=== PATIENT | female | born 1970 | race Caucasian/White ===

== ENCOUNTER → 2016-04-01 | Outpatient (CLI) | payer MEDICARE, MEDICAID ==
[~2016-04-01] MED LIST: /RISPSOL3 PO; /ROPI1TA OR; ABIL30TA4 OR; ALLE25CA OR; ARTHROTEC OR; BACL10TA2 OR; CELE100C OR; CLON1TAB PO; DOCU10CA PO; DRIS50002 PO; GABA800T PO; HYDR-3713 PO; HYDR50TA8 OR; LAMO25TA2 PO; MIRT30TA3 PO; OXCA600T OR; PERC5TAB6 PO; PERC5TAB8 OR; PRAZ2CAP PO; PREG50CA OR; PROP10TA56 PO; QUET30TA OR; REQU2TAB3 OR; SERO1TAB2 PO; SERO400T OR; SOMA250T OR; SUMA100T2 PO; TRAM50TA2 OR; TRAZ100T OR; ULTRTA OR; ZIPR60CA11 PO; ZOLO100T OR; ZOLO50TA OR; savella PO
== END ==
LOC: M LAB 09:51
PROVIDERS: ATTEND Physician Assistant Medical
DX: E55.9 Vitamin D deficiency, unspecified (principal); Z79.899 Other long term (current) drug therapy

== ENCOUNTER → 2016-04-01 | Outpatient (CLI) | payer MEDICARE, MEDICAID ==
[2016-04-01 10:31] LABS: MEAN CORPUSCULAR HEMOGLOBIN 31.2 pg (27.0-33.0); MEAN CORPUSCULAR HGB CONC 32.8 g/dl (32.0-36.5); RED CELL DISTRIBUTION WIDTH 12.7 % (11.5-14.5)
[2016-04-01 10:51] LABS: ALBUMIN 3.8 GM/DL (3.2-5.2); ALBUMIN/GLOBULIN RATIO 1.27 (1.00-1.93); ALKALINE PHOSPHATASE 74 U/L (45-117); ALT/SGPT 27 U/L (12-78); ANION GAP 6 MEQ/L (8-16); AST/SGOT 15 U/L (15-37); BILIRUBIN,TOTAL 0.2 MG/DL (0.2-1.0); BLOOD UREA NITROGEN 12 MG/DL (7-18); CALCIUM LEVEL 8.7 MG/DL (8.5-10.1); CARBON DIOXIDE LEVEL 29 MEQ/L (21-32); CHLORIDE LEVEL 107 MEQ/L (98-107); CHOLESTEROL LEVEL 206 MG/DL (<200); GLOMERULAR FILTRATION RATE > 60.0 (>58); GLUCOSE, FASTING 81 MG/DL (70-105); PHOSPHORUS LEVEL 3.7 MG/DL (2.5-4.9); POTASSIUM SERUM 4.7 MEQ/L (3.5-5.1); SODIUM LEVEL 142 MEQ/L (136-145); TOTAL PROTEIN 6.8 GM/DL (6.4-8.2); TRIGLYCERIDES LEVEL 164 MG/DL (<150)
[2016-04-01 10:52] LABS: LITHIUM LEVEL 0.85 MEQ/L (0.60-1.20)
== END ==
LOC: M LAB 09:47
PROVIDERS: ATTEND Nurse Practitioner Psychiatric/Mental Health
DX: Z51.81 Encounter for therapeutic drug level monitoring (principal); Z79.899 Other long term (current) drug therapy; E55.9 Vitamin D deficiency, unspecified

== ENCOUNTER → 2016-07-10 | Outpatient (CLI) | payer MEDICARE, MEDICAID ==
--- NOTE | 2016-07-10 10:44 | REPMRS ---
Patient History The patient states she has not had a clinical breast exam in over a year. Family history of prostate cancer in father and unknown cancer in mother. Benign ultrasound-guided core biopsy of the right breast, March 11, 2010. Digital Woman Screen Mammo: July 10, 2016 - Exam #: [id number] Bilateral CC and MLO view(s) were taken. Technologist: Elsi Vale, Technologist Prior study comparison: June 28, 2013, right breast digital mammo diagnostic unilateral, performed at [facility]. June 14, 2013, bilateral digital mammo screening bilat, performed at [facility]. March 18, 2012, digital woman screen mammo performed at [facility]. FINDINGS: The breast tissue is heterogeneously dense. This may lower the sensitivity of mammography. There is a moderate amount of heterogeneously dense fibroglandular tissue which is fairly symmetric. There is no interval development of dominant mass, architectural distortion, or clustered microcalcification typical of malignancy. There has been no change in the appearance of the mammogram from the prior studies. ASSESSMENT: BI-RADS/ACR category 1 mammogram. Negative. Recommendation Routine screening mammogram of both breasts in 1 year (for women over age 40). This mammogram was interpreted with the aid of an FDA-approved computer-aided dectection system. Electronically Signed By: Severino Roper MD 07/10/16 [id number]
== END ==
LOC: M WHC 08:22
PROVIDERS: ATTEND Family Medicine
DX: Z12.31 Encounter for screening mammogram for malignant neoplasm of breast (principal)

== ENCOUNTER → 2016-07-16 | Outpatient (REF) | payer MEDICARE, MEDICAID ==
[2016-07-16 12:51] LABS: FREE T4 0.69 NG/DL (0.76-1.46)
== END ==
LOC: M SFHCPLAZ 09:40
PROVIDERS: ATTEND Family Medicine
DX: Z13.29 Encounter for screening for other suspected endocrine disorder (principal); Z79.899 Other long term (current) drug therapy

== ENCOUNTER → 2016-08-04 | Outpatient (CLI) | payer MEDICARE, MEDICAID | LOC: M LAB 11:33 | PROVIDERS: ATTEND Family Medicine | DX: Z13.1 Encounter for screening for diabetes mellitus (principal); E66.9 Obesity, unspecified; Z79.899 Other long term (current) drug therapy ==

== ENCOUNTER → 2017-04-03 | Outpatient (CLI) | payer MEDICARE, MEDICAID ==
[2017-04-03 10:59] LABS: TOTAL 25(OH) VITAMIN D 110.4 NG/ML (30.0-100.0)
== END ==
LOC: M LAB 09:46
DX: E55.9 Vitamin D deficiency, unspecified (principal)
CPT/HCPCS: 82306

== ENCOUNTER 2017-06-16 09:08 | Emergency (ER) | payer MEDICARE, MEDICAID | END 2017-06-16 10:23 | disposition home or self-care (01) | LOC: M ED 09:08 | DX: S93.401A Sprain of unspecified ligament of right ankle, initial encounter (principal); W18.49XA Other slipping, tripping and stumbling without falling, initial encounter; Y92.480 Sidewalk as the place of occurrence of the external cause; F17.200 Nicotine dependence, unspecified, uncomplicated; F20.9 Schizophrenia, unspecified; F33.9 Major depressive disorder, recurrent, unspecified; F41.9 Anxiety disorder, unspecified; F43.10 Post-traumatic stress disorder, unspecified; Z79.899 Other long term (current) drug therapy; Z88.5 Allergy status to narcotic agent; Z88.8 Allergy status to other drugs, medicaments and biological substances; Z88.0 Allergy status to penicillin; Z98.890 Other specified postprocedural states; Z85.41 Personal history of malignant neoplasm of cervix uteri; M51.36 Other intervertebral disc degeneration, lumbar region | CPT/HCPCS: 73610 ==

== ENCOUNTER → 2017-07-07 | Outpatient (CLI) | payer MEDICARE, MEDICAID ==
[2017-07-07 11:29] LABS: TOTAL 25(OH) VITAMIN D 49.9 NG/ML (30.0-100.0)
== END ==
LOC: M LAB 10:33
DX: E55.9 Vitamin D deficiency, unspecified (principal)
CPT/HCPCS: 82306

== ENCOUNTER → 2017-07-27 | Outpatient (CLI) | payer MEDICARE, MEDICAID | LOC: M RAD 16:09 | DX: S93.412D Sprain of calcaneofibular ligament of left ankle, subsequent encounter (principal) | CPT/HCPCS: 73721 ==

== ENCOUNTER → 2017-12-19 | Outpatient (REF) | payer MEDICARE, MEDICAID | LOC: M LAB REF 11:56 | DX: J11.1 Influenza due to unidentified influenza virus with other respiratory manifestations (principal) | CPT/HCPCS: 87633 ==

== ENCOUNTER → 2018-07-01 | Outpatient (CLI) | payer MEDICARE, MEDICAID ==
[~2018-07-01] MED LIST changes: -/RISPSOL3 PO; -/ROPI1TA OR; +ALPR1TAB3; +CARI1TAB7; -CLON1TAB PO; +CLON1TAB8 PO; -DRIS50002 PO; +DRIS50003 PO; +FLUO20CA19; -GABA800T PO; +GABA800T4 PO; -LAMO25TA2 PO; +LAMO25TA4 PO; +MELO15TA28; +PERC5TAB12 PO; -PERC5TAB6 PO; +PRAM0.754; +REQU1TAB16 OR; +RISP1SOL15 PO; +RIZA10TA4; +VITA50005
[2018-07-07 10:11] LABS: ALPRAZOLAM, URINE Negative (Cutoff=100); BENZODIAZEPINES, URINE Negative ng/mL (Cutoff=100); BENZOYLECGONINE (GC/MS) 800 ng/mL (Cutoff=150); CLONAZEPAM, URINE Negative (Cutoff=100); COCAINE + METABOLITE Positive (Cutoff=300); CODEINE, URINE Negative (Cutoff=100); CREATININE, URINE 58.2 mg/dL (20.0-300.0); FLURAZEPAM, URINE Negative (Cutoff=100); HYDROCODONE CONFIRM, URINE 1402 ng/mL (Cutoff=100); HYDROCODONE, URINE Positive (.); HYDROMORPHONE, URINE Negative (Cutoff=100); LORAZEPAM, URINE Negative (Cutoff=100); MIDAZOLAM, URINE Negative (Cutoff=100); MORPHINE, URINE Negative (Cutoff=100); NORDIAZEPAM, URINE Negative (Cutoff=100); OPIATES, URINE Positive ng/mL (Cutoff=300); OXAZEPAM, URINE Negative (Cutoff=100); TEMAZEPAM, URINE Negative (Cutoff=100); TRIAZOLAM, URINE Negative (Cutoff=100)
== END ==
LOC: M LAB 09:10
PROVIDERS: ATTEND Physician Assistant Medical
DX: G89.4 Chronic pain syndrome (principal); E55.9 Vitamin D deficiency, unspecified

== ENCOUNTER → 2018-11-17 | Outpatient (CLI) | payer MEDICARE, MEDICAID ==
--- NOTE | 2018-11-17 13:59 | REPMRS ---
Patient History The patient states she had a clinical breast exam in 2018. Patient has history of endometrial cancer. Family history of unknown cancer in mother, prostate cancer in father. Benign ultrasound-guided core biopsy of the right breast, March 11, 2010. Digital Mammo Diagnostic Bilateral: November 17, 2018 - Exam #: [id number] Bilateral CC and MLO view(s) were taken. Technologist: Bridgette Campos Technologist Prior study comparison: July 10, 2016, digital woman screen mammo, performed at [facility]. June 28, 2013, right breast digital mammo diagnostic unilateral performed at [facility]. June 14, 2013, bilateral digital mammo screening bilat performed at [facility]. FINDINGS: The breast tissue is heterogeneously dense. This may lower the sensitivity of mammography. There is a stable lobulated nodular opacity 12 o'clock in the right breast unchanged from 2014. There is a moderate amount of heterogeneously dense fibroglandular tissue which is fairly symmetric. There is no interval development of dominant mass, architectural distortion, or grouped microcalcification typical of malignancy. There has been no change in the appearance of the mammogram from the prior studies. 3-D tomosynthesis shows no additional findings. Assessment: BI-RADS/ACR category 2 mammogram. Benign Findings. Recommendation Routine screening mammogram of both breasts in 1 year (for women over age 40). This patient's Lifetime Breast Cancer RIsk is estimated at 7.8 %. This mammogram was interpreted with the aid of an FDA-approved computer-aided dectection system. Electronically Signed By: Severino Roper MD 11/17/18 [id number]
== END ==
LOC: M RAD 13:14
PROVIDERS: ATTEND Advanced Practice Midwife
DX: N64.4 Mastodynia (principal); N63.20 Unspecified lump in the left breast, unspecified quadrant; N63.10 Unspecified lump in the right breast, unspecified quadrant
CPT/HCPCS: 77066; G0279

== ENCOUNTER 2018-12-13 10:14 | Emergency (ER) | payer MEDICARE, MEDICAID ==
[~2018-12-13] VITALS: Ht 154.9 cm; Wt 73.7 kg
[~2018-12-13 10:14] MED LIST changes: -RIZA10TA4; +RIZA10TA58
[2018-12-13] MEDS ORDERED: ONDANSETRON 4MG/2ML VIAL (J2405) IV ONE (10:45)
[2018-12-13] MEDS ORDERED: NS 1,000 ML IV ONE ×2 (10:45→12:15)
[2018-12-13 11:01] LABS: BASO % 0.4 % (0.0-1.0); EOS % 0.3 % (0.0-3.0); HEMATOCRIT 39.3 % (36.0-47.0); HEMOGLOBIN 13.4 g/dl (12.0-15.5); LYMPH # 3.7 10^3/uL (1.5-5.0); LYMPH % 40.2 % (24.0-44.0); MEAN CORPUSCULAR HGB CONC 34.1 g/dl (32.0-36.5); MEAN CORPUSCULAR VOLUME 93.8 fl (80.0-96.0); MONO # 0.5 10^3/uL (0.0-0.8); MONO % 5.1 % (0.0-5.0); NEUTROPHILS # 4.9 10^3/uL (1.5-8.5); NEUTROPHILS % 53.7 % (36.0-66.0); PLATELET COUNT, AUTOMATED 304 10^3/uL (150-450); RED BLOOD COUNT 4.19 10^6/uL (4.00-5.40); WHITE BLOOD COUNT 9.1 10^3/uL (4.0-10.0)
[2018-12-13 11:34] LABS: ALBUMIN 3.6 GM/DL (3.2-5.2); ALT/SGPT 21 U/L (12-78); AMYLASE 37 U/L (25-115); BILIRUBIN,DIRECT 0.1 MG/DL (0.0-0.2); BILIRUBIN,TOTAL 0.4 MG/DL (0.2-1.0); BLOOD UREA NITROGEN 10 MG/DL (7-18); CALCIUM LEVEL 9.3 MG/DL (8.5-10.1); CARBON DIOXIDE LEVEL 23 MEQ/L (21-32); CHLORIDE LEVEL 112 MEQ/L (98-107); CREATININE FOR GFR 0.77 MG/DL (0.55-1.30); GLOMERULAR FILTRATION RATE > 60.0 (>51); GLUCOSE, FASTING 88 MG/DL (70-100); LIPASE 84 U/L (73-393); SODIUM LEVEL 141 MEQ/L (136-145); TOTAL PROTEIN 6.8 GM/DL (6.4-8.2)
[2018-12-13] MEDS ORDERED: ONDA4TAB6 PO (13:17)
[2018-12-13 13:18] VITALS: BP 120/63
--- NOTE | 2018-12-13 13:42 | REP ---
ABDOMINAL SERIES: Supine and erect views of the abdomen demonstrate no free air and no compelling evidence for small bowel obstruction. I do not see significantly dilated small bowel loops, and there are no air-fluid levels on the upright view. There are multiple phleboliths in the pelvis. IMPRESSION: No evidence of free air or small bowel obstruction. Electronically Signed by Leonel Raman MD 12/18/2018 05:20 P
[2018-12-16] MEDS ORDERED: CIPR250T3 PO (07:46)
== END 2018-12-13 13:26 | disposition home or self-care (01) ==
LOC: M ED 10:14
DX: R11.2 Nausea with vomiting, unspecified (principal); R19.7 Diarrhea, unspecified; F17.200 Nicotine dependence, unspecified, uncomplicated; Z88.0 Allergy status to penicillin; Z88.8 Allergy status to other drugs, medicaments and biological substances; Z88.5 Allergy status to narcotic agent
CPT/HCPCS: 74019; 80048; 80076; 81001; 82150; 83605; 83690; 85025; 87186; 96374; 99284; J2405

== ENCOUNTER → 2019-02-14 | Outpatient (CLI) | payer MEDICARE, MEDICAID ==
[~2019-02-14] MED LIST changes: +CIPR250T3 PO; +ONDA4TAB6 PO
== END ==
LOC: M LAB 12:08
PROVIDERS: ATTEND Advanced Practice Midwife
DX: Z13.71 Encounter for nonprocreative screening for genetic disease carrier status (principal)

== ENCOUNTER → 2019-08-05 | Outpatient (CLI) | payer MEDICARE, MEDICAID ==
[~2019-08-05] MED LIST changes: +BACL10TA2; -FLUO20CA19; +FLUO20CA22; +MECL1TAB31 PO; +QUET50TA48
[2019-08-05 10:44] LABS: BASO # 0.1 10^3/uL (0.0-0.2); BASO % 0.6 % (0.0-1.0); EOS # 0.1 10^3/uL (0.0-0.5); EOS % 0.8 % (0.0-3.0); HEMATOCRIT 43.7 % (36.0-47.0); HEMOGLOBIN 14.8 g/dl (12.0-15.5); LYMPH # 2.9 10^3/uL (1.5-5.0); LYMPH % 26.7 % (24.0-44.0); MEAN CORPUSCULAR HEMOGLOBIN 31.7 pg (27.0-33.0); MEAN CORPUSCULAR HGB CONC 33.9 g/dl (32.0-36.5); MEAN CORPUSCULAR VOLUME 93.6 fl (80.0-96.0); MONO # 0.7 10^3/uL (0.0-0.8); MONO % 6.1 % (0.0-5.0); NEUTROPHILS % 65.3 % (36.0-66.0); PLATELET COUNT, AUTOMATED 276 10^3/uL (150-450); RED BLOOD COUNT 4.67 10^6/uL (4.00-5.40); WHITE BLOOD COUNT 10.7 10^3/uL (4.0-10.0)
[2019-08-05 11:14] LABS: HEMOGLOBIN A1c 5.5 %
[2019-08-05 11:16] LABS: ALBUMIN 3.5 GM/DL (3.2-5.2); ALT/SGPT 19 U/L (12-78); BILIRUBIN,TOTAL 0.4 MG/DL (0.2-1.0); BLOOD UREA NITROGEN 10 MG/DL (7-18); CALCIUM LEVEL 9.1 MG/DL (8.5-10.1); CARBON DIOXIDE LEVEL 28 MEQ/L (21-32); CHLORIDE LEVEL 112 MEQ/L (98-107); CHOLESTEROL LEVEL 244 MG/DL (<200); CREATININE FOR GFR 0.96 MG/DL (0.55-1.30); FREE T4 0.85 NG/DL (0.76-1.46); GLOMERULAR FILTRATION RATE > 60.0 (>51); GLUCOSE, FASTING 86 MG/DL (70-100); HDL CHOLESTEROL 50 MG/DL (>40); LDL CHOLESTEROL 161 MG/DL (<100); NON-HDL-C 194 MG/DL; POTASSIUM SERUM 4.9 MEQ/L (3.5-5.1); SODIUM LEVEL 144 MEQ/L (136-145); TOTAL 25(OH) VITAMIN D 33.5 NG/ML (30.0-100.0); TOTAL PROTEIN 6.5 GM/DL (6.4-8.2); TRIGLYCERIDES LEVEL 164 MG/DL (<150)
== END ==
LOC: M LAB 09:34
PROVIDERS: ATTEND Physician Assistant
DX: E55.9 Vitamin D deficiency, unspecified (principal); E78.2 Mixed hyperlipidemia; F17.210 Nicotine dependence, cigarettes, uncomplicated; Z13.29 Encounter for screening for other suspected endocrine disorder

== ENCOUNTER → 2019-08-05 | Outpatient (CLI) | payer MEDICARE, MEDICAID ==
--- NOTE | 2019-08-05 12:49 | REP ---
MRI cervical spine: 08/05/2019. Indication: Cervical radiculopathy. Technique: Multiplanar short and long TR sequences of the cervical spine were obtained without IV Gadolinium. Comparison: 02/28/2010. Findings: The patient is status post C4/C5 ACDF. There is mild straightening of the cervical lordosis. No worrisome marrow signal is detected. There is no abnormal cord signal. The craniocervical junction is unremarkable. C2/C3: There is no focal disc herniation or significant spinal canal / neural foraminal narrowing. C3/C4: There is an asymmetric disc osteophyte complex more pronounced on the left with minimal flattening of the left ventral lateral cord. There is moderate to severe narrowing of the left neural foramen. Moderate right neural foraminal narrowing is present. C4/C5: Postoperative sequelae are present. Left greater than right uncovertebral spurring is noted with moderate to severe left neural foraminal narrowing. There is no significant spinal canal or right neural foraminal narrowing. C5/C6: Diffuse disc osteophyte complex is present without significant spinal canal or neural foraminal narrowing. C6/C7: Diffuse disc osteophyte complex is present without significant spinal canal narrowing. There is mild left neural foraminal narrowing. C7/C1: Unremarkable. Impression: Postoperative and multilevel degenerative sequelae as described without significant spinal canal narrowing/cord compression. Multilevel neural foraminal narrowing most pronounced on the left at C3/C4. Electronically Signed by Wally Miranda DO 08/05/2019 12:41 P
== END ==
LOC: M RAD 09:38
PROVIDERS: ATTEND Nurse Practitioner Family
DX: M54.12 Radiculopathy, cervical region (principal); E55.9 Vitamin D deficiency, unspecified; E78.2 Mixed hyperlipidemia; F17.210 Nicotine dependence, cigarettes, uncomplicated; Z13.29 Encounter for screening for other suspected endocrine disorder; Z79.899 Other long term (current) drug therapy

== ENCOUNTER 2019-08-07 10:08 | Emergency (ER) | payer MEDICARE, MEDICAID ==
[~2019-08-07 10:08] MED LIST changes: -BACL10TA2; -MECL1TAB31 PO; -QUET50TA48
[2019-08-07] MEDS ORDERED: QUET50TA48 (10:13)
[2019-08-07] MEDS ORDERED: BACL10TA2 (10:13)
[2019-08-07 10:37] LABS: BASO % 0.4 % (0.0-1.0); EOS % 0.3 % (0.0-3.0); HEMATOCRIT 42.5 % (36.0-47.0); HEMOGLOBIN 14.4 g/dl (12.0-15.5); LYMPH % 29.1 % (24.0-44.0); MEAN CORPUSCULAR HGB CONC 33.9 g/dl (32.0-36.5); MEAN CORPUSCULAR VOLUME 91.4 fl (80.0-96.0); MONO # 0.7 10^3/uL (0.0-0.8); MONO % 6.6 % (0.0-5.0); NEUTROPHILS # 6.5 10^3/uL (1.5-8.5); NEUTROPHILS % 63.1 % (36.0-66.0); PLATELET COUNT, AUTOMATED 290 10^3/uL (150-450); RED BLOOD COUNT 4.65 10^6/uL (4.00-5.40); WHITE BLOOD COUNT 10.3 10^3/uL (4.0-10.0)
[2019-08-07] MEDS ORDERED: diazePAM 10MG/2ML SYRINGE (J3360 PER 5MG) IV ONE (11:00)
--- NOTE | 2019-08-07 13:10 | REP ---
CT brain: 08/07/2019. Indication: Vertigo. Technique: Unenhanced axial CT images of the brain were obtained from skull base to vertex. Comparison: 05/05/2010. Findings: There is no acute intracranial hemorrhage, acute cortical infarction, hydrocephalus or significant fluid within the paranasal sinuses/mastoid air cells. Left vertex arachnoid cyst is redemonstrated and stable. There is no shift of midline structures. Impression: No acute intracranial process. Electronically Signed by Wally Miranda DO 08/07/2019 01:02 P
[2019-08-07] MEDS ORDERED: MECL1TAB31 PO (13:38)
[2019-08-07 13:52] VITALS: BP 112/71
--- NOTE | 2019-08-07 16:11 | ECGEPIP ---
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
== END 2019-08-07 13:54 | disposition home or self-care (01) ==
LOC: M ED 10:08
DX: R42 Dizziness and giddiness (principal); T42.8X5A Adverse effect of antiparkinsonism drugs and other central muscle-tone depressants, initial encounter; Y92.9 Unspecified place or not applicable; Y93.9 Activity, unspecified; Z79.899 Other long term (current) drug therapy; Z88.0 Allergy status to penicillin; Z88.8 Allergy status to other drugs, medicaments and biological substances
CPT/HCPCS: 70450; 80047; 85025; 93005; 96374; 99284; J3360

== ENCOUNTER → 2019-09-06 | Outpatient (CLI) | payer MEDICARE, MEDICAID ==
[~2019-09-06] MED LIST changes: +BACL10TA2; +MECL1TAB31 PO; +QUET50TA48
--- NOTE | 2019-09-07 01:52 | REP ---
LUMBOSACRAL SPINE: REASON: Back pain and lower extremity radicular symptoms. COMPARISON: 08/14/2009, the latest prior. FINDINGS: There is no significant change from the prior exam. Five views of the lumbosacral spine show no acute fracture, dislocation, or subluxation. The intervertebral disc spaces are symmetric and well maintained. There is no spondylolisthesis. The pedicles are intact bilaterally, and there is no destructive osseous lesions. IMPRESSION: Unremarkable lumbosacral spine series. Electronically Signed by Vincent Reynolds DO 09/07/2019 12:39 P
== END ==
LOC: M WUC 15:30
PROVIDERS: ATTEND Physician Assistant
DX: M54.5 Low back pain (principal)

== ENCOUNTER 2019-10-14 12:03 | Emergency (ER) | payer MEDICARE, MEDICAID ==
[~2019-10-14] VITALS: Ht 152.4 cm; Wt 68.5 kg
[2019-10-14] MEDS ORDERED: CARI1TAB7 PO (12:15)
[2019-10-14] MEDS ORDERED: SERO150T2 PO (12:16)
--- NOTE | 2019-10-14 13:03 | REPVR ---
PROCEDURE INFORMATION: Exam: XR Right Hand Exam date and time: 10/14/2019 12:27 PM Age: 48 years old Clinical indication: Injury or trauma; Injury history: Punched a wall; Initial encounter; Abrasion; Hand; Right; Additional info: Pain after punching a wall TECHNIQUE: Imaging protocol: XR Right hand. Views: 3 or more views. COMPARISON: No relevant prior studies available. FINDINGS: Bones/joints: The visualized osseous structures are unremarkable. No acute fracture or dislocation is seen. There are mild degenerative osteo-arthritic changes with joint space narrowing and osteophyte formation. Soft tissues: There is mild soft tissue swelling. IMPRESSION: No acute fracture or dislocation is seen. Electronically signed by: Iron Colunga On 10/14/2019 13:03:39 PM
--- NOTE | 2019-10-14 13:04 | REPVR ---
PROCEDURE INFORMATION: Exam: XR Right Forearm Exam date and time: 10/14/2019 12:27 PM Age: 48 years old Clinical indication: Pain; Lower or forearm; Right; Additional info: Pain after punching a wall TECHNIQUE: Imaging protocol: XR Right forearm. Views: 2 views. COMPARISON: No relevant prior studies available. FINDINGS: Bones/joints: The visualized osseous structures are unremarkable. No acute fracture or dislocation is seen. There are mild degenerative osteo-arthritic changes with joint space narrowing and osteophyte formation. Soft tissues: There is mild soft tissue swelling. IMPRESSION: No acute fracture or dislocation is seen. Electronically signed by: Iron Colunga On 10/14/2019 13:04:33 PM
[2019-10-14 13:29] VITALS: BP 125/77
== END 2019-10-14 13:29 | disposition home or self-care (01) ==
LOC: M ED 12:03
DX: S60.221A Contusion of right hand, initial encounter (principal); W22.09XA Striking against other stationary object, initial encounter; Y92.009 Unspecified place in unspecified non-institutional (private) residence as the place of occurrence of the external cause; Y93.9 Activity, unspecified; M25.531 Pain in right wrist; F25.9 Schizoaffective disorder, unspecified; F17.210 Nicotine dependence, cigarettes, uncomplicated; Z88.0 Allergy status to penicillin; Z88.8 Allergy status to other drugs, medicaments and biological substances; Z88.5 Allergy status to narcotic agent

== ENCOUNTER → 2019-11-11 | Outpatient (CLI) | payer MEDICARE, MEDICAID ==
[~2019-11-11] MED LIST changes: +AZIT-12 PO; +CARI1TAB7 PO; +RIZA10TA2 PO; +SERO150T2 PO; +TRAZ-186 PO; +VENTAER INH
[2019-11-11 18:25] LABS: BASO # 0.1 10^3/uL (0.0-0.2); BASO % 0.5 % (0.0-1.0); EOS # 0.1 10^3/uL (0.0-0.5); EOS % 0.5 % (0.0-3.0); HEMOGLOBIN 13.1 g/dl (12.0-15.5); LYMPH # 3.2 10^3/uL (1.5-5.0); LYMPH % 28.6 % (24.0-44.0); MEAN CORPUSCULAR HGB CONC 33.6 g/dl (32.0-36.5); MEAN CORPUSCULAR VOLUME 95.4 fl (80.0-96.0); MONO # 0.4 10^3/uL (0.0-0.8); MONO % 3.6 % (0.0-5.0); NEUTROPHILS # 7.4 10^3/uL (1.5-8.5); NEUTROPHILS % 66.3 % (36.0-66.0); PLATELET COUNT, AUTOMATED 291 10^3/uL (150-450); RED BLOOD COUNT 4.09 10^6/uL (4.00-5.40); WHITE BLOOD COUNT 11.1 10^3/uL (4.0-10.0)
[2019-11-11 18:29] LABS: ALBUMIN 3.5 GM/DL (3.2-5.2); ALT/SGPT 12 U/L (12-78); BILIRUBIN,TOTAL 0.3 MG/DL (0.2-1.0); BLOOD UREA NITROGEN 8 MG/DL (7-18); CALCIUM LEVEL 8.9 MG/DL (8.5-10.1); CARBON DIOXIDE LEVEL 28 MEQ/L (21-32); CHLORIDE LEVEL 110 MEQ/L (98-107); CREATININE FOR GFR 1.03 MG/DL (0.55-1.30); GLOMERULAR FILTRATION RATE > 60.0 (>51); GLUCOSE, FASTING 101 MG/DL (70-100); POTASSIUM SERUM 3.8 MEQ/L (3.5-5.1); SODIUM LEVEL 142 MEQ/L (136-145); TOTAL PROTEIN 6.4 GM/DL (6.4-8.2)
[2019-11-11 18:34] LABS: INR 0.94; PROTHROMBIN TIME 12.8 SECONDS (12.5-14.3)
[2019-11-11 18:35] LABS: PARTIAL THROMBOPLASTIN TIME 33.9 SECONDS (24.2-38.5)
[2019-11-11 20:01] LABS: APPEARANCE, URINE CLOUDY (CLEAR); BACTERIA, URINE AUTO 1+ (NEGATIVE); BILIRUBIN, URINE AUTO NEGATIVE (NEGATIVE); BLOOD, URINE BLOOD 1+ (NEGATIVE); COLOR, URINE YELLOW (YELLOW); GLUCOSE, URINE (UA) AUTO NEGATIVE (NEGATIVE); KETONE, URINE AUTO NEGATIVE (NEGATIVE); LEUKOCYTE ESTERASE, URINE AUTO 3+ (NEGATIVE); NITRITE, URINE AUTO NEGATIVE (NEGATIVE); PROTEIN, URINE AUTO NEGATIVE (NEGATIVE); RBC, URINE AUTO 8 /HPF (0-3); SPECIFIC GRAVITY URINE AUTO 1.006 (1.002-1.035); SQUAMOUS EPITHELIAL CELL UR AU 31 /HPF (0-6); UROBILINOGEN, URINE AUTO 0.2 mg/dL (0.0-2.0); WBC, URINE AUTO 4 /HPF (0-3)
--- NOTE | 2019-11-15 12:06 | REPPI ---
CHEST X-RAY: 2-VIEWS HISTORY: Preoperative testing. FINDINGS: The lungs are symmetrically aerated and free of infiltrate. Pleural angles are sharp. Heart size is normal. Pulmonary vasculature is not increased. Patient is status post cervical discectomy and fusion hardware placement. There are mild degenerative changes in the thoracic spine. IMPRESSION: No active cardiopulmonary disease. MTDD
== END ==
LOC: M PLALAB 14:19 → M PLAIMG 14:19
PROVIDERS: ATTEND Family Medicine
DX: Z01.818 Encounter for other preprocedural examination (principal); M51.34 Other intervertebral disc degeneration, thoracic region; Z79.899 Other long term (current) drug therapy
CPT/HCPCS: 36415; 71046; 80053; 81001; 85025; 85610; 85730; 87086; G0463

== ENCOUNTER 2019-12-09 17:12 | Emergency (ER) | payer MEDICARE, MEDICAID ==
[~2019-12-09] VITALS: Ht 152.4 cm; Wt 73.8 kg
[~2019-12-09 17:12] MED LIST changes: -AZIT-12 PO; -RIZA10TA2 PO; -TRAZ-186 PO; -VENTAER INH
[2019-12-09] MEDS ORDERED: TRAZ-186 PO (17:22)
[2019-12-09] MEDS ORDERED: RIZA10TA2 PO (17:23)
[2019-12-09] MEDS ORDERED: ALBUTEROL 90 MCG/ACT 8GM HFA INHALER INH ONE (18:00)
[2019-12-09] MEDS ORDERED: ONDANSETRON 4 MG ORAL DISINTEGRATING TAB PO ONE (18:00)
[2019-12-09 18:58] LABS: BASO # 0.1 10^3/uL (0.0-0.2); BASO % 0.6 % (0.0-1.0); EOS # 0.1 10^3/uL (0.0-0.5); HEMATOCRIT 40.2 % (36.0-47.0); HEMOGLOBIN 12.9 g/dl (12.0-15.5); LYMPH # 3.4 10^3/uL (1.5-5.0); LYMPH % 35.5 % (24.0-44.0); MEAN CORPUSCULAR HEMOGLOBIN 30.1 pg (27.0-33.0); MEAN CORPUSCULAR HGB CONC 32.1 g/dl (32.0-36.5); MEAN CORPUSCULAR VOLUME 93.9 fl (80.0-96.0); MONO # 0.6 10^3/uL (0.0-0.8); MONO % 6.5 % (0.0-5.0); NEUTROPHILS # 5.4 10^3/uL (1.5-8.5); NEUTROPHILS % 55.8 % (36.0-66.0); PLATELET COUNT, AUTOMATED 276 10^3/uL (150-450); RED BLOOD COUNT 4.28 10^6/uL (4.00-5.40); WHITE BLOOD COUNT 9.7 10^3/uL (4.0-10.0)
--- NOTE | 2019-12-09 19:03 | REPVR ---
PROCEDURE INFORMATION: Exam: XR Chest, 1 View Exam date and time: 12/09/2019 6:57 PM Age: 49 years old Clinical indication: Shortness of breath; Additional info: SOB TECHNIQUE: Imaging protocol: XR of the chest Views: 1 view. COMPARISON: LA CHEST 2 VIEWS 11/11/2019 2:42 PM FINDINGS: Lungs: Unremarkable. No consolidation. Pleural space: Unremarkable. No pleural effusion. No pneumothorax. Heart/Mediastinum: Unremarkable. No cardiomegaly. Bones/joints: Unremarkable. IMPRESSION: No acute findings. Electronically signed by: Mariajose Lima On 12/09/2019 19:03:32 PM
[2019-12-09 19:17] LABS: INFLUENZA A AMPLIFICATION NEGATIVE (NEGATIVE); INFLUENZA B AMPLIFICATION NEGATIVE (NEGATIVE)
[2019-12-09] MEDS ORDERED: AZIT-12 PO (19:39)
[2019-12-09] MEDS ORDERED: ONDA4TAB6 PO (19:39)
[2019-12-09] MEDS ORDERED: VENTAER INH (19:39)
[2019-12-09 20:08] VITALS: BP 110/69
== END 2019-12-09 20:10 | disposition home or self-care (01) ==
LOC: M ED 17:12
DX: J20.9 Acute bronchitis, unspecified (principal); Z87.442 Personal history of urinary calculi; M54.9 Dorsalgia, unspecified; F41.9 Anxiety disorder, unspecified; F32.9 Major depressive disorder, single episode, unspecified; F43.10 Post-traumatic stress disorder, unspecified; F20.9 Schizophrenia, unspecified; Z85.41 Personal history of malignant neoplasm of cervix uteri; Z72.0 Tobacco use; Z79.899 Other long term (current) drug therapy; Z88.0 Allergy status to penicillin; Z88.8 Allergy status to other drugs, medicaments and biological substances; Z88.5 Allergy status to narcotic agent
CPT/HCPCS: 71045; 80047; 85025; 87502; 99283; Q0162; U0003

== ENCOUNTER → 2020-06-22 | Outpatient (CLI) | payer OTHER, MEDICAID ==
[~2020-06-22] MED LIST changes: +AZIT-12 PO; +RIZA10TA2 PO; +TRAZ-186 PO; +VENTAER INH
== END ==
LOC: M LABSMTC 13:39
PROVIDERS: ATTEND Pediatrics
DX: Z20.822 Contact with and (suspected) exposure to COVID-19 (principal)

== ENCOUNTER 2021-02-12 15:33 | Emergency (ER) | payer OTHER, MEDICAID ==
[~2021-02-12] VITALS: Ht 152.4 cm; Wt 64.1 kg
[2021-02-12 15:33] VITALS: BP 149/83
--- NOTE | 2021-02-12 16:46 | REP ---
INDICATION: fall on ice COMPARISON: None. TECHNIQUE: AP and lateral right tibia/fibula. FINDINGS: There is no oblique fracture of the distal fibular diaphysis. No other fracture or dislocation identified. IMPRESSION: Oblique fracture of the distal fibular diaphysis. <Electronically signed by Ash Vora > 02/12/21 [id number]
--- NOTE | 2021-02-12 16:46 | REP ---
INDICATION: twisted COMPARISON: None. TECHNIQUE: AP, lateral, bilateral oblique views. FINDINGS: There is an oblique fracture of the distal fibular diaphysis with overlying soft tissue swelling. IMPRESSION: Fracture of the distal fibular diaphysis. <Electronically signed by Ash Vora > 02/12/21 1803
[2021-02-12] MEDS: IBUPROFEN 800 MG TAB PO ONE (17:34)
[2021-02-12] MEDS: MORPHINE 4 MG/ML 1ML VIAL/SYRINGE (J2270) IM ONE (17:34)
[2021-02-12] MEDS ORDERED: HYDR-4517 PO (17:51)
[2021-02-12] MEDS: ONDANSETRON 4 MG ORAL DISINTEGRATING TAB PO ONE (18:20)
== END 2021-02-12 18:48 | disposition home or self-care (01) ==
LOC: M ED 15:33
DX: S82.831A Other fracture of upper and lower end of right fibula, initial encounter for closed fracture (principal); W00.9XXA Unspecified fall due to ice and snow, initial encounter; Y92.410 Unspecified street and highway as the place of occurrence of the external cause; Y93.9 Activity, unspecified; Y99.9 Unspecified external cause status; F17.200 Nicotine dependence, unspecified, uncomplicated; F12.10 Cannabis abuse, uncomplicated; Z79.899 Other long term (current) drug therapy; Z88.0 Allergy status to penicillin; Z88.8 Allergy status to other drugs, medicaments and biological substances; Z88.5 Allergy status to narcotic agent
CPT/HCPCS: 29515; 73590; 73610; 96372; 99284; J2270

== ENCOUNTER → 2021-02-18 | Outpatient (CLI) | payer OTHER, MEDICAID ==
[~2021-02-18] MED LIST changes: +APAP325T4 PO; +HYDR-4517 PO; +IBUP200C90 PO; +OXYC1TAB23 PO
== END ==
LOC: M SOG 10:10
PROVIDERS: ATTEND Orthopaedic Surgery
DX: S82.61XD Displaced fracture of lateral malleolus of right fibula, subsequent encounter for closed fracture with routine healing (principal); X58.XXXD Exposure to other specified factors, subsequent encounter; Y92.9 Unspecified place or not applicable; Y93.9 Activity, unspecified; Y99.9 Unspecified external cause status

== ENCOUNTER → 2021-02-20 | Outpatient (CLI) | payer OTHER, MEDICAID ==
[~2021-02-20] MED LIST changes: -OXYC1TAB23 PO
== END ==
LOC: M LABSMTC 11:56
PROVIDERS: ATTEND Anesthesiology
DX: Z01.818 Encounter for other preprocedural examination (principal); Z11.52 Encounter for screening for COVID-19

== ENCOUNTER → 2021-02-21 | Outpatient (CLI) | payer OTHER, MEDICAID ==
[~2021-02-21] MED LIST changes: +OXYC1TAB23 PO
--- NOTE | 2021-02-21 15:10 | REP ---
INDICATION: RT FIB FX. COMPARISON: 02/18/2021 TECHNIQUE: Two views FINDINGS: The casting material has been removed. The previously described oblique distal fibular fracture is again identified. The fracture is unchanged in alignment and position. No discernible callus formation is identified. There is no evidence of an acute fracture. IMPRESSION: As above. <Electronically signed by Vincent Reynolds > 02/21/21 2001
== END ==
LOC: M SOG 14:40
PROVIDERS: ATTEND Orthopaedic Surgery
DX: S82.61XD Displaced fracture of lateral malleolus of right fibula, subsequent encounter for closed fracture with routine healing (principal); X58.XXXD Exposure to other specified factors, subsequent encounter; Y92.9 Unspecified place or not applicable; Y93.9 Activity, unspecified; Y99.9 Unspecified external cause status

== ENCOUNTER 2021-02-25 07:28 | Day surgery (SDC) | payer OTHER, MEDICAID ==
[~2021-02-25] VITALS: Ht 152.4 cm; Wt 67.2 kg
[~2021-02-25 07:28] MED LIST changes: +LIDOCAINE 1% MDV 20ML VIAL SQ PRN; +LR 1,000 ML IV ONE; +MIDAZOLAM INJ 2MG/2ML VIAL (J2250 PER 1MG) IV PRN; -OXYC1TAB23 PO; +VANCOMYCIN HCL 1,000 MG, VIAL MATE ADAPTER 1 EACH in NS 250 ML IV ONE; +fentaNYL 100 MCG/2 ML INJECTION (J3010) IV PRN
[2021-02-25] MEDS ORDERED: dexameTHASONE 10MG/1ML VIAL PRES.FREE (J1100 PER 1MG) XX ONE (08:35)
[2021-02-25] MEDS ORDERED: EPINEPHrine INJ 1 MG/ML 1ML AMP XX ONE (08:35)
[2021-02-25] MEDS ORDERED: ROPIvacaine 0.5% 30ML INJECTION (J2795 PER 1MG) XX ONE (08:35)
[2021-02-25] MEDS ORDERED: BUPIVACAINE/EPIN 0.25% 30 ML VIAL As Ordered ONE (09:43)
[2021-02-25] MEDS ORDERED: ROCURONIUM BROMIDE 50 MG/5 ML VIAL As Ordered ONE (10:13)
[2021-02-25] MEDS ORDERED: dexameTHASONE 4 MG/ML 1ML VIAL (J1100 PER 1MG) As Ordered ONE (10:13)
[2021-02-25] MEDS ORDERED: MIDAZOLAM INJ 2MG/2ML VIAL (J2250 PER 1MG) As Ordered ONE (10:13)
[2021-02-25] MEDS ORDERED: LIDOCAINE 2% 100MG/5ML SDV (FOR ANES.) As Ordered ONE (10:13)
[2021-02-25] MEDS ORDERED: propofoL 200 MG/20 ML VIAL As Ordered ONE (10:13)
[2021-02-25] MEDS ORDERED: GLYCOPYRROLATE INJ 0.2 MG/ML 2 ML VIAL As Ordered ONE (10:13)
[2021-02-25] MEDS ORDERED: ONDANSETRON 4MG/2ML VIAL As Ordered ONE (10:13)
[2021-02-25] MEDS ORDERED: fentaNYL 100 MCG/2 ML INJECTION (J3010) As Ordered ONE (10:13)
[2021-02-25] MEDS ORDERED: ePHEDrine SULFATE 25 MG/5 ML(5MG/ML) SYRINGE As Ordered ONE (10:16)
[2021-02-25] MEDS ORDERED: PHENYLephrine 500MCG 5ML (100MCG/ML) SYRINGE As Ordered ONE (10:16)
[2021-02-25] MEDS ORDERED: HYDROmorphone HCL 2 MG/ML 1ML VIAL As Ordered ONE (10:21)
[2021-02-25] MEDS ORDERED: VASOPRESSIN INJ 20 UNITS/ML VIAL As Ordered ONE (10:33)
[2021-02-25] MEDS ORDERED: SUGAMMADEX SODIUM 500 MG/5 ML VIAL (BRIDION) As Ordered ONE (10:42)
--- NOTE | 2021-02-25 10:54 | ECGEPIP ---
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 Electronically Signed on 02-25-2021 10:54:15 EST by Frank Flood
--- NOTE | 2021-02-25 12:11 | ROOPDOC ---
[facility] Report Of Operation Report of Operation DATE OF PROCEDURE: 02/25/21 PREPROCEDURE DIAGNOSES: [Right lateral malleolus fracture with syndesmosis injury]. POSTPROCEDURE DIAGNOSES: [Right lateral malleolus fracture with syndesmosis injury]. PROCEDURE PERFORMED: [Open reduction internal fixation right lateral malleolus with a 5 hole [place] locking plate. Open reduction and fixation right ankle syndesmosis with Arthrex titanium tightrope]. SURGEON: [Efren Chun]MD LITIGATION PARTNER: [invasive cardiovascular technologist], ANESTHESIA: [General anesthesia]. ESTIMATED BLOOD LOSS: Approximately [50 mils] mL. COMPLICATIONS: [None]. REMARKS: . FINDINGS: [Right lateral malleolus fracture at top end of the syndesmosis. Positive cotton test after fixation of lateral malleolus.] SPECIMENS REMOVED: PROCEDURE NOTE: . DESCRIPTION OF PROCEDURE: [Patient is met in the holding area. H&P was reviewed. Consent was confirmed. Right leg was marked. Patient on discussion with anesthesia. Opted to proceed with a popliteal block. Patient was taken to operative room here at [facility]. She was placed supine on the operative room table. She was given 1 g of vancomycin preop for infection prophylaxis. A bump was then placed under her right hip. All bony prominences well-padded. Her right ankle was then elevated onto a bolster. And then she was prepped and draped in usual manner. There was a cuff right upper thigh but it was not inflated. Once prepped and draped. Used fluoroscopy to identify the fracture. Infiltrated the skin and subcutaneous tissues with 5 cc of Marcaine with 0.25% epinephrine. We then used a lateral incision directly over the fibula. Deepened tissues down to the fibula. Elevated the periosteum identified the fracture site. Short oblique almost transverse fracture. We reduced the fracture out to the appropriate length. Then use K wires to maintain the length of the fracture. We first fashioned a 5 hole plate. [place] locking plate along the lateral aspect of the fibula. We provisionally secured it as a neutralizing plate. We then took x-rays. We thought the plate was a bit posterior and could be moved more distal. Reremove the provisional fixation and reposition the plate more distal and more anterior. He maintain the fracture using K wires. We managed to get for nonlocking screws proximally and 5 locking screws distally. We thought we got good reduction of the fibula. We took repeat fluoroscopic views. AP and lateral Under fluoroscopic guidance performed a cotton test. We thought there was some widening at the syndesmosis. So we proceeded to use a tightrope to reduce the syndesmosis. Syndesmosis reduce approximately 2 cm above the ankle joint. Tightened the titanium tight rope. Repeated the ankle views AP lateral mortise. I thought we got a better reduction of syndesmosis with anatomic symmetrical ankle joint. Tied the syndesmosis tight rope. Then irrigated wound copious amounts of saline. Closed the wound with 2-0 Vicryl and Monocryl. Steri-Strips to help with closure. Patient was placed into a 3 sided Ortho cast slab She was awakened from anesthesia Taken to recovery in stable manner]. EFREN SCHAEFER MD Feb 25, 2021 12:11
[2021-02-25] MEDS ORDERED: OXYC1TAB23 PO (12:14)
--- NOTE | 2021-02-25 12:14 | REP ---
INDICATION: RIGHT ANKLE FRACTURE. COMPARISON: 02/21/2021, 02/18/2021. TECHNIQUE: Three C-arm views right ankle. FINDINGS: Metallic plate and multiple screws are placed in the distal fibula. Small metallic structure is seen at the medial cortex of the distal tibia. The osseous structures are well-aligned. The ankle mortise appears anatomic. IMPRESSION: 1 minute of fluoroscopy time was utilized. <Electronically signed by Leonel Raman > 02/25/21 [id number]
[2021-02-25] MEDS ORDERED: ONDANSETRON 4MG/2ML VIAL IV PRN (12:30)
[2021-02-25] MEDS ORDERED: LR 1,000 ML IV SCH ×2 (12:30)
[2021-02-25] MEDS ORDERED: oxyCODONE 5MG TAB PO PRN (12:30)
[2021-02-25] MEDS ORDERED: PERCOCET 5MG/325MG TAB PO PRN (12:30)
[2021-02-25] MEDS ORDERED: fentaNYL 100 MCG/2 ML INJECTION (J3010) IV PRN (12:30)
[2021-02-25] MEDS ORDERED: ACETAMINOPHEN TAB 650MG DOSE (2X325MG) PO PRN (12:30)
[2021-02-25 14:10] VITALS: BP 120/57
== END 2021-02-25 14:12 | disposition home or self-care (01) ==
LOC: M SDC 07:28
PROVIDERS: ATTEND Orthopaedic Surgery
DX: S82.61XA Displaced fracture of lateral malleolus of right fibula, initial encounter for closed fracture (principal); W00.0XXA Fall on same level due to ice and snow, initial encounter; Y92.89 Other specified places as the place of occurrence of the external cause; Y99.9 Unspecified external cause status; Y93.9 Activity, unspecified; F20.0 Paranoid schizophrenia; F32.9 Major depressive disorder, single episode, unspecified; F17.218 Nicotine dependence, cigarettes, with other nicotine-induced disorders; Z88.0 Allergy status to penicillin; Z88.5 Allergy status to narcotic agent; Z88.8 Allergy status to other drugs, medicaments and biological substances; F43.10 Post-traumatic stress disorder, unspecified; Z79.899 Other long term (current) drug therapy
CPT/HCPCS: 27792; 27829; 76000; 93005; C1713; J1100; J1170; J2250; J2370; J2405; J2795; J3010; J3370

== ENCOUNTER → 2021-02-27 | Outpatient (CLI) | payer OTHER, MEDICAID ==
[~2021-02-27] MED LIST changes: -LIDOCAINE 1% MDV 20ML VIAL SQ PRN; -LR 1,000 ML IV ONE; -MIDAZOLAM INJ 2MG/2ML VIAL (J2250 PER 1MG) IV PRN; +OXYC1TAB23 PO; -VANCOMYCIN HCL 1,000 MG, VIAL MATE ADAPTER 1 EACH in NS 250 ML IV ONE; -fentaNYL 100 MCG/2 ML INJECTION (J3010) IV PRN
== END ==
LOC: M SOG 10:41
PROVIDERS: ATTEND Orthopaedic Surgery
DX: S82.61XD Displaced fracture of lateral malleolus of right fibula, subsequent encounter for closed fracture with routine healing (principal)
CPT/HCPCS: 73610; G0463

== ENCOUNTER → 2021-03-12 | Outpatient (CLI) | payer OTHER, MEDICAID | LOC: M SOG 09:19 | PROVIDERS: ATTEND Orthopaedic Surgery | DX: S82.61XD Displaced fracture of lateral malleolus of right fibula, subsequent encounter for closed fracture with routine healing (principal); Z48.89 Encounter for other specified surgical aftercare; M79.89 Other specified soft tissue disorders; X58.XXXD Exposure to other specified factors, subsequent encounter; Y92.9 Unspecified place or not applicable; Y93.9 Activity, unspecified; Y99.9 Unspecified external cause status ==

== ENCOUNTER → 2021-03-26 | Outpatient (CLI) | payer OTHER, MEDICAID | LOC: M SOG 08:20 | PROVIDERS: ATTEND Orthopaedic Surgery | DX: S82.61XD Displaced fracture of lateral malleolus of right fibula, subsequent encounter for closed fracture with routine healing (principal); S93.431A Sprain of tibiofibular ligament of right ankle, initial encounter; X58.XXXD Exposure to other specified factors, subsequent encounter; Y92.9 Unspecified place or not applicable; Y93.9 Activity, unspecified; Y99.9 Unspecified external cause status ==

== ENCOUNTER → 2021-04-09 | Outpatient (CLI) | payer OTHER, MEDICAID | LOC: M SOG 08:45 | PROVIDERS: ATTEND Orthopaedic Surgery | DX: S82.61XD Displaced fracture of lateral malleolus of right fibula, subsequent encounter for closed fracture with routine healing (principal) ==

== ENCOUNTER → 2022-03-14 | Outpatient (CLI) | payer OTHER, MEDICAID ==
[~2022-03-14] MED LIST changes: -QUET50TA48; +QUET50TA67
== END ==
LOC: M WHC 15:04
PROVIDERS: ATTEND Nurse Practitioner Family
DX: Z12.31 Encounter for screening mammogram for malignant neoplasm of breast (principal)

== ENCOUNTER → 2022-11-13 | Outpatient (REF) | payer OTHER, MEDICAID ==
[~2022-11-13] MED LIST changes: +MECL-209 PO; -MECL1TAB31 PO
== END ==
LOC: M WUC 10:14
PROVIDERS: ATTEND Student in an Organized Health Care Education/Training Program
DX: R30.0 Dysuria (principal)

== ENCOUNTER → 2023-03-10 | Outpatient (REF) | payer OTHER, MEDICAID ==
[2023-03-10 14:58] LABS: HIV 1&2 SCREEN NEGATIVE (NEGATIVE)
[2023-03-10 15:06] LABS: HEPATITIS C VIRUS ABY INDEX < 0.02 INDEX (<0.8)
== END ==
LOC: M LAB REF 12:29
PROVIDERS: ATTEND Nurse Practitioner Family
DX: Z11.59 Encounter for screening for other viral diseases (principal); Z11.4 Encounter for screening for human immunodeficiency virus [HIV]

== ENCOUNTER → 2023-05-28 | Outpatient (REF) | payer OTHER, MEDICAID ==
[2023-05-28 12:48] LABS: BASO # 0.1 10^3/uL (0.0-0.2); BASO % 0.7 % (0.0-1.0); EOS % 0.3 % (0.0-3.0); HEMATOCRIT 39.3 % (36.0-47.0); HEMOGLOBIN 13.5 g/dl (12.0-15.5); LYMPH # 2.9 10^3/uL (1.5-5.0); LYMPH % 40.1 % (24.0-44.0); MEAN CORPUSCULAR HEMOGLOBIN 31.8 pg (27.0-33.0); MEAN CORPUSCULAR HGB CONC 34.4 g/dl (32.0-36.5); MEAN CORPUSCULAR VOLUME 92.5 fl (80.0-96.0); MONO # 0.5 10^3/uL (0.0-0.8); MONO % 7.2 % (2.0-8.0); NEUTROPHILS # 3.8 10^3/uL (1.5-8.5); NEUTROPHILS % 51.2 % (36.0-66.0); PLATELET COUNT, AUTOMATED 335 10^3/uL (150-450); RED BLOOD COUNT 4.25 10^6/uL (4.00-5.40); WHITE BLOOD COUNT 7.3 10^3/uL (4.0-10.0)
[2023-05-28 13:08] LABS: HEMOGLOBIN A1c 5.2 % (4.0-6.0)
[2023-05-28 13:14] LABS: ALBUMIN 4.1 G/DL (3.2-5.2); ALKALINE PHOSPHATASE 71 U/L (46-116); ALT/SGPT 28 U/L (7.0-40); AST/SGOT 25 U/L (<34); BILIRUBIN,TOTAL 0.4 MG/DL (0.3-1.2); BLOOD UREA NITROGEN 10 MG/DL (9-23); CALCIUM LEVEL 9.3 MG/DL (8.5-10.1); CARBON DIOXIDE LEVEL 27 MMOL/L (20-31); CHLORIDE LEVEL 109 MMOL/L (98-107); CHOLESTEROL LEVEL 250 MG/DL (<200); CHOLESTEROL RISK RATIO 4.13 (<5); CREATININE FOR GFR 0.78 MG/DL (0.55-1.30); GLOMERULAR FILTRATION RATE > 60.0 (>51); GLUCOSE, FASTING 83 MG/DL (60-100); HDL CHOLESTEROL 60.5 MG/DL (>40); LDL CHOLESTEROL 172.9 MG/DL (<100); MAGNESIUM LEVEL 1.9 MG/DL (1.8-2.4); NON-HDL-C 189.5 MG/DL; POTASSIUM SERUM 4.5 MMOL/L (3.5-5.1); SODIUM LEVEL 141 MMOL/L (136-145); TOTAL PROTEIN 6.7 G/DL (5.7-8.2); TRIGLYCERIDES LEVEL 83 MG/DL (<150)
[2023-05-28 13:16] LABS: THYROID STIMULATING HORMONE 0.988 uIU/ML (0.55-4.78); TOTAL 25(OH) VITAMIN D 31.5 NG/ML (20.0-100.0)
== END ==
LOC: M LAB REF 11:54
PROVIDERS: ATTEND Nurse Practitioner Family
DX: E66.3 Overweight (principal); E55.9 Vitamin D deficiency, unspecified; Z79.899 Other long term (current) drug therapy

== ENCOUNTER → 2023-11-26 | Outpatient (CLI) | payer OTHER, MEDICAID ==
[~2023-11-26] MED LIST changes: +ATOR1TAB19; +FLUO-365; -FLUO20CA22; +GABA-1635 PO; -GABA800T4 PO; +MAGN400T35; +ONDA-282 PO; -ONDA4TAB6 PO
[2023-11-26 15:25] LABS: ALBUMIN 3.7 G/DL (3.2-5.2); ALKALINE PHOSPHATASE 68 U/L (46-116); ALT/SGPT 10 U/L (7.0-40); AST/SGOT < 8 U/L (<34); BILIRUBIN,TOTAL 0.3 MG/DL (0.3-1.2); BLOOD UREA NITROGEN 8 MG/DL (9-23); CALCIUM LEVEL 9.1 MG/DL (8.5-10.1); CARBON DIOXIDE LEVEL 28 MMOL/L (20-31); CHLORIDE LEVEL 109 MMOL/L (98-107); CHOLESTEROL LEVEL 146 MG/DL (<200); CHOLESTEROL RISK RATIO 2.81 (<5); CREATININE FOR GFR 0.88 MG/DL (0.55-1.30); GLOMERULAR FILTRATION RATE > 60.0 (>51); GLUCOSE, FASTING 90 MG/DL (60-100); HDL CHOLESTEROL 51.8 MG/DL (>40); LDL CHOLESTEROL 76.4 MG/DL (<100); NON-HDL-C 94.2 MG/DL; SODIUM LEVEL 139 MMOL/L (136-145); TOTAL PROTEIN 6.3 G/DL (5.7-8.2); TRIGLYCERIDES LEVEL 89 MG/DL (<150)
== END ==
LOC: M LAB 13:47
PROVIDERS: ATTEND Nurse Practitioner Family
DX: R79.89 Other specified abnormal findings of blood chemistry (principal)

== ENCOUNTER → 2023-12-03 | Outpatient (REF) | payer OTHER, MEDICAID ==
[~2023-12-03] MED LIST changes: -ATOR1TAB19; -MAGN400T35
[2023-12-03 18:48] LABS: MAGNESIUM LEVEL 2.2 MG/DL (1.8-2.4)
[2023-12-03 18:52] LABS: FOLATE 12.2 NG/ML (>5.4)
== END ==
LOC: M LAB REF 16:45
PROVIDERS: ATTEND Nurse Practitioner Family
DX: G25.81 Restless legs syndrome (principal)

== ENCOUNTER 2023-12-06 12:51 | Emergency (ER) | payer OTHER, MEDICAID ==
[~2023-12-06] VITALS: Ht 152.4 cm; Wt 65.3 kg
[2023-12-06] MEDS ORDERED: MAGN400T35 (13:00)
[2023-12-06] MEDS ORDERED: ATOR1TAB19 (13:00)
[2023-12-06] MEDS: KETOROLAC 30 MG/ML 1ML VIAL IM ONE (14:56)
[2023-12-06] MEDS: ACETAMINOPHEN 500 MG TAB PO ONE (14:56)
[2023-12-06 15:05] VITALS: BP 125/75; TEMP 97.8; O2SAT 98
== END 2023-12-06 16:45 | disposition home or self-care (01) ==
LOC: M ED 12:51
DX: M54.50 Low back pain, unspecified (principal); K59.00 Constipation, unspecified; E78.5 Hyperlipidemia, unspecified; F43.10 Post-traumatic stress disorder, unspecified; F32.A Depression, unspecified; F25.9 Schizoaffective disorder, unspecified; Z87.442 Personal history of urinary calculi; Z79.899 Other long term (current) drug therapy
CPT/HCPCS: 74018; 81001; 87086; 96372; 99283; J1885

== ENCOUNTER 2024-02-24 11:01 | Emergency (ER) | payer OTHER, MEDICAID ==
[~2024-02-24] VITALS: Ht 152.4 cm; Wt 54.5 kg
[~2024-02-24 11:01] MED LIST changes: +ATOR1TAB19; +MAGN400T35; -ZIPR60CA11 PO; +ZIPR60CA21 PO
[2024-02-24] MEDS ORDERED: HYDR-3363 (11:18)
[2024-02-24] MEDS: LIDOCAINE 1% MDV 20ML VIAL SC ONE (12:15)
[2024-02-24] MEDS: PERCOCET 5MG/325MG TAB PO ONE (12:23)
[2024-02-24] MEDS: BOOSTRIX VACCINE (TETANUS/DIPHTH/ACEL. PERTUSSIS) 0.5ML SYR IM ONE (12:24)
[2024-02-24] MEDS ORDERED: DOXY-441 PO (12:59)
[2024-02-24] MEDS: DOXYCYCLINE HYCLATE 100MG TABLET PO ONE (13:04)
[2024-02-24] MEDS ORDERED: NEOSPORIN OINT 0.9 GM PKT TOP ONE (13:20)
[2024-02-24 13:39] VITALS: BP 118/67; TEMP 98.7; O2SAT 96
== END 2024-02-24 13:41 | disposition home or self-care (01) ==
LOC: M ED 11:01
DX: S81.832A Puncture wound without foreign body, left lower leg, initial encounter (principal); S61.432A Puncture wound without foreign body of left hand, initial encounter; W54.0XXA Bitten by dog, initial encounter; Y92.480 Sidewalk as the place of occurrence of the external cause; Y93.01 Activity, walking, marching and hiking; Y99.9 Unspecified external cause status; E78.5 Hyperlipidemia, unspecified; F41.9 Anxiety disorder, unspecified; F32.A Depression, unspecified; F25.9 Schizoaffective disorder, unspecified; Z87.442 Personal history of urinary calculi; Z85.41 Personal history of malignant neoplasm of cervix uteri; F17.200 Nicotine dependence, unspecified, uncomplicated; Z79.899 Other long term (current) drug therapy; Z88.0 Allergy status to penicillin; Z88.1 Allergy status to other antibiotic agents; Z88.5 Allergy status to narcotic agent; Z88.8 Allergy status to other drugs, medicaments and biological substances

== ENCOUNTER 2024-05-18 10:22 | Outpatient (RCR) | payer MEDICARE, MEDICAID ==
[~2024-05-18 10:22] MED LIST changes: +CARI-555; +CARI-555 PO; -CARI1TAB7; -CARI1TAB7 PO; +DOXY-441 PO; +HYDR-3363
== END 2024-05-23 ==
LOC: M PT 10:22
PROVIDERS: ATTEND Physician Assistant
DX: M79.605 Pain in left leg (principal)

== ENCOUNTER → 2024-06-08 | Outpatient (REF) | payer OTHER, MEDICAID, MEDICARE ==
[2024-06-09 13:02] LABS: BASO # 0.1 10^3/uL (0.0-0.2); BASO % 0.8 % (0.0-1.0); EOS # 0.1 10^3/uL (0.0-0.5); EOS % 0.9 % (0.0-3.0); HEMATOCRIT 41.2 % (36.0-47.0); HEMOGLOBIN 13.4 g/dl (12.0-15.5); LYMPH # 3.7 10^3/uL (1.5-5.0); LYMPH % 48.8 % (24.0-44.0); MEAN CORPUSCULAR HEMOGLOBIN 31.3 pg (27.0-33.0); MEAN CORPUSCULAR HGB CONC 32.5 g/dl (32.0-36.5); MEAN CORPUSCULAR VOLUME 96.3 fl (80.0-96.0); MONO # 0.5 10^3/uL (0.0-0.8); NEUTROPHILS # 3.2 10^3/uL (1.5-8.5); NEUTROPHILS % 42.2 % (36.0-66.0); PLATELET COUNT, AUTOMATED 312 10^3/uL (150-450); RED BLOOD COUNT 4.28 10^6/uL (4.00-5.40); WHITE BLOOD COUNT 7.5 10^3/uL (4.0-10.0)
[2024-06-09 13:13] LABS: TOTAL 25(OH) VITAMIN D 66.5 NG/ML (20.0-100.0)
[2024-06-09 13:16] LABS: ALBUMIN 3.5 G/DL (3.2-5.2); BILIRUBIN,TOTAL 0.2 MG/DL (0.3-1.2); CALCIUM LEVEL 9.3 MG/DL (8.5-10.1); CREATININE FOR GFR 0.88 MG/DL (0.55-1.30); GLOMERULAR FILTRATION RATE 77.6 (>51); MAGNESIUM LEVEL 2.1 MG/DL (1.8-2.4); POTASSIUM SERUM 4.1 MMOL/L (3.5-5.1); TOTAL PROTEIN 6.1 G/DL (5.7-8.2)
[2024-06-09 14:16] LABS: HEMOGLOBIN A1c 5.2 % (4.0-6.0)
== END ==
LOC: M LAB REF 12:30
PROVIDERS: ATTEND Nurse Practitioner Family
DX: E55.9 Vitamin D deficiency, unspecified (principal); E66.3 Overweight; Z79.899 Other long term (current) drug therapy

== ENCOUNTER → 2024-06-20 | Outpatient (CLI) | payer MEDICARE, MEDICAID | LOC: M WHC 12:53 | PROVIDERS: ATTEND Nurse Practitioner Family | DX: N64.4 Mastodynia (principal); R92.323 Mammographic fibroglandular density, bilateral breasts; N60.01 Solitary cyst of right breast | CPT/HCPCS: 77066; G0279 ==

== ENCOUNTER → 2024-06-22 | Outpatient (RCR) | payer MEDICARE, MEDICAID | LOC: M PT 05-25 12:28 | PROVIDERS: ATTEND Physician Assistant | DX: M79.605 Pain in left leg (principal) ==

== ENCOUNTER → 2025-01-25 | Outpatient (CLI) | payer MEDICARE, MEDICAID ==
[~2025-01-25] MED LIST changes: +LAMO-18 PO; -LAMO25TA4 PO
[2025-01-25 13:03] LABS: ALT/SGPT 14 U/L (7.0-40); AST/SGOT 12 U/L (<34); CALCIUM LEVEL 8.8 MG/DL (8.5-10.1); CARBON DIOXIDE LEVEL 29 MMOL/L (20-31); CHLORIDE LEVEL 110 MMOL/L (98-107); CHOLESTEROL LEVEL 249 MG/DL (<200); CHOLESTEROL RISK RATIO 4.07 (<5); CREATININE FOR GFR 0.89 MG/DL (0.55-1.30); GLOMERULAR FILTRATION RATE 76.0 (>51); LDL CHOLESTEROL 157.7 MG/DL (<100); NON-HDL-C 187.9 MG/DL; POTASSIUM SERUM 4.5 MMOL/L (3.5-5.1); SODIUM LEVEL 144 MMOL/L (136-145); TRIGLYCERIDES LEVEL 151 MG/DL (<150)
[2025-01-25 13:05] LABS: TOTAL 25(OH) VITAMIN D 41.6 NG/ML (20.0-100.0)
[2025-01-25 13:15] LABS: ESTIMATED AVERAGE GLUCOSE 103.0 MG/DL (60-110)
[2025-01-25 13:30] LABS: HIV 1&2 SCREEN NEGATIVE (NEGATIVE)
[2025-01-25 13:37] LABS: HEPATITIS C VIRUS ABY INDEX < 0.02 INDEX (<0.8)
== END ==
LOC: M LAB 10:17
PROVIDERS: ATTEND Physician Assistant
DX: E55.9 Vitamin D deficiency, unspecified (principal); Z11.9 Encounter for screening for infectious and parasitic diseases, unspecified; E78.00 Pure hypercholesterolemia, unspecified; G25.81 Restless legs syndrome; Z79.899 Other long term (current) drug therapy